=== PATIENT | female | born 1955 | race Caucasian/White ===

== ENCOUNTER 2021-12-14 20:17 | Emergency (ER) | payer MEDICAID ==
[~2021-12-14] VITALS: Ht 144.8 cm; Wt 49.4 kg
[2021-12-14 20:52] VITALS: BP 124/64
--- NOTE | 2021-12-14 21:04 | NUR ---
PT TO LOBBY
--- NOTE | 2021-12-14 22:03 | NUR ---
PT TAKEN TO BED 7
[2021-12-14] MEDS ORDERED: HYDROcodone/APAP 7.5/325 MG 1 TAB PO ONE (23:00)
[2021-12-14] MEDS ORDERED: cephALEXin 500 MG CAP PO ONE (23:00)
--- NOTE | 2021-12-14 23:18 | NUR ---
X-Ray at bedside.
--- NOTE | 2021-12-15 00:20 | NUR ---
66 Y/O FEMALE BIB FAMILY, C/O FOOT UCLER AND BLACKENED BIG TOE ON LEFT FOOT. PATIENT PRESENTS TO ED WITH WEAKNESS AND NUMBNESS TO LEFT FOOT. PT STATES A FEW DAYS AGO PT HAD A PROCEDURE TO REMOVE CLOTS IN HER LEG, SHORTLY AFTER PT'S S/S STARTED. DENIES N/V/D; SKIN IS PINK/WARM/DRY; AAOX4 WITH EVEN AND STEADY GAIT; LUNGS CLEAR BL; HR EVEN AND REGULAR; PT DENIES ANY FEVER, CP, SOB, OR COUGH AT THIS TIME; PATIENT STATES PAIN OF 0/10 AT THIS TIME; VSS; PATIENT POSITIONED FOR COMFORT; HOB ELEVATED; BEDRAILS UP X2; BED DOWN. ER MD MADE AWARE OF PT STATUS. HX: A-FIB, HTN, DM, AND CVA NKA MEDS: ATORVASTATIN, LEVETERACETAM, DIGOXINA, AND DEFLAZACART
[2021-12-15] MEDS ORDERED: cephALEXin 500 MG CAP ONE (00:21)
[2021-12-15] MEDS ORDERED: HYDROcodone/APAP 7.5/325 MG 1 TAB ONE (00:22)
[2021-12-15] MEDS ORDERED: CEPH-588 PO (00:43)
[2021-12-15] MEDS ORDERED: HYDR-5080 PO (00:43)
[2021-12-15 01:06] VITALS: BP 124/64
--- NOTE | 2021-12-15 01:06 | NUR ---
Patient discharged with v/s stable. Written and verbal after care instructions given and explained. Patient alert, oriented and verbalized understanding of instructions. Wheel Chair Assisted with to car. All questions addressed prior to discharge. ID band removed. Patient advised to follow up with PMD. Rx of CEPHALEXIN AND HYDROCODONE/ACETAMINOPHEN given. Patient educated on indication of medication including possible reaction and side effects. Opportunity to ask questions provided and answered. VSS, UNLABORED BREATHING, AND CALM DEMEANOR.
== END 2021-12-15 01:06 | disposition home or self-care (01) ==
LOC: MED 20:17
DX: I73.9 Peripheral vascular disease, unspecified (principal); L03.115 Cellulitis of right lower limb; R00.0 Tachycardia, unspecified; I48.91 Unspecified atrial fibrillation; E11.9 Type 2 diabetes mellitus without complications; I10 Essential (primary) hypertension; Z79.2 Long term (current) use of antibiotics; Z79.891 Long term (current) use of opiate analgesic
CPT/HCPCS: 73630; 99283; Q0092